=== PATIENT | female | born 1985 | race Caucasian/White ===

== ENCOUNTER 2016-10-02 20:34 | Emergency (ER) | payer OTHER ==
[2016-10-02] MEDS ORDERED: ONDANSETRON 4 MG ORAL DISINTEGRATING TAB (S0181) As Ordered ONE (21:01)
--- NOTE | 2016-10-02 21:36 | EDDOCDS ---
Nurse's Notes [facility] Name: Jose Burt Age: 31 yrs Sex: Female : 1985 Arrival Date: 10/02/2016 Time: 20:34 Bed Triage 1 Private MD: Cinda - Complete Info On Cds Diagnosis: Vomiting;Diarrhea, unspecified Presentation: 10/02 20:39 Presenting complaint: Patient states: vomiting and diarrhea today. States she got dizzy ttb approx 1 hr ago and almost passed out. Adult Sepsis Screening: The patient does not have new or worsening altered mentation. Patient's respiratory rate is less than 22. Systolic blood pressure is greater than 100. Patient has a qSOFA score of 0- Negative Sepsis Screen. Suicide/Homicide risk assessment- the patient denies having any suicidal and/or homicidal ideations and does not present with any other emotional, behavioral or mental health complaints. Status: The patient is a dependent. Transition of care: patient was not received from another setting of care. 20:39 Acuity: JUVENTINO Level 3 ttb 20:39 Method Of Arrival: Ambulance ttb Triage Assessment: 20:40 General: Appears in no apparent distress, slender, well nourished, Behavior is ttb appropriate for age, cooperative, pleasant. Pain: Denies pain. HIV screening NA for this visit Offered previously. Neurological: Level of Consciousness is awake, alert, Reports dizziness. Cardiovascular: Chest pain is denied. Respiratory: No deficits noted. Airway is patent Denies cough, shortness of breath. GI: Reports nausea, vomiting. Derm: Skin is pale. Injury Description: No known injury. 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 Patient/guardian denies using alcohol, street drugs, No barriers to communication noted, The patient speaks fluent Haitian, Speaks appropriately for age. - Family history: No immediate family members are acutely ill. - : The pt / caregiver states he / she is not on anticoagulants. Home medication list is obtained from the patient. - Exposure Risk Screening:: None identified. Screenin:34 Screening information is obtained from the patient. Fall risk: No risks identified. nn1 Assistance ADL's: requires no assistance with activities of daily living. Abuse/DV Screen: The patient / caregiver reports he/she is: not in a situation that causes fear, pain or injury. Nutritional screening: No deficits noted. Advance Directives: Currently, there is no health care proxy. home support is adequate. Assessment: 21:03 General: Appears uncomfortable, Behavior is appropriate for age, cooperative. Pain: nn1 Location: abdomen Pain currently is 1 out of 10 on a pain scale. Aggravated by vomiting. Respiratory: No deficits noted. GI: Abdomen is non- distended Bowel sounds present X 4 quads. Abd is soft and non tender X 4 quads. Reports diarrhea, nausea, vomiting. Derm: Skin is pink, warm & dry. 21:12 General: Patient given chapis bimal to assess fluid tolerance. . nn1 21:33 General: Appears in no apparent distress, comfortable, Behavior is appropriate for age, nn1 cooperative, No vomiting at this time. . Respiratory: No deficits noted. Derm: Skin is pink, warm & dry. Vital Signs: 20:36 BP 104 / 73; Pulse 103; Resp 16; Temp 96.9(O); Pulse Ox 93% on R/A; Weight 50.8 kg; sew Height 5 ft. 2 in. (157.48 cm); Pain 0/10; 20:59 Pulse 89; Pulse Ox 98% ; jo3 20:36 Body Mass Index 20.48 (50.80 kg, 157.48 cm) sew Vitals: 20:36 Log In Time: October 02, 2016 at 20:32. sew ED Course: 20:35 Patient visited by Leeanna Ramírez. sew 20:35 Patient moved to Waiting sew 20:36 Other - Complete Info On Cds is Private Physician. sew 20:37 Patient visited by Leeanna Ramírez. sew 20:37 Patient moved to Pre RCE sew 20:40 Triage Initiated ttb 20:41 Patient visited by Sara Brooke RN. ttb 20:41 Patient moved to Triage 1 ttb 20:42 Luis Sandoval PA is PHCP. mo1 20:42 Sarath Cha DO is Attending Physician. mo1 20:54 Patient visited by Luis Sandoval PA. mo1 21:34 The patient / caregiver is instructed regarding the plan of care and ED course. nn1 21:34 No IV's were initiated during this patient's visit. No procedures done that require nn1 assistance. Administered Medications: 21:03 Drug: Ondansetron ODT 4 mg [ondansetron 4 mg disintegrating tablet (1 tabs)] Route: PO; nn1 Order Results: There are currently no results for this order. Outcome: 21:25 Discharge ordered by Provider. mo1 21:34 Discharge Assessment: Patient awake, alert and oriented x 3. No cognitive and/or nn1 functional deficits noted. Patient verbalized understanding of disposition instructions. patient administered narcotics - no. The following High Risk Discharge criteria are identified: None. Discharged to home ambulatory. Condition: stable Condition: improved. No special radiology studies were completed. Property :Personal belongings accompany Pt. 21:34 Patient left the ED. nn1 Signatures: Genny SanchezRN RN jo3 Leeanna Ramírez Teresa RN RN shib Luis Sandoval PA PA mo1 Sharron PinkRN RN nn1 Corrections: (The following items were deleted from the chart) 21:01 20:59 Resp 89bpm; Pulse Ox 98%; jo3 jo3 MTDD
--- NOTE | 2016-10-02 21:36 | EDDOCDS ---
Physician Documentation [facility] Name: Jose Burt Age: 31 yrs Sex: Female : 1985 Arrival Date: 10/02/2016 Time: 20:34 Bed Triage 1 Private MD: Other - Complete Info On Cds Disposition: 10/02/16 21:25 Discharged to Home/Self Care. Impression: Vomiting, Diarrhea, unspecified. - Condition is Stable. - Discharge Instructions: Food Choices to Help Relieve Diarrhea, Adult, Diarrhea, Nausea and Vomiting. - Prescriptions for ZOFRAN ODT 4 mg Oral - dissolve 1 tablet by ORAL route 4 times per day As needed do not chew, do not swallow whole; 20 tablet. - Medication Reconciliation, Local Pharmacy Hours form. - Follow up: Private Physician; When: Call to arrange an appointment; Reason: Recheck today's complaints, Continuance of care. - Problem is new. - Symptoms have improved. Historical: - Allergies: no known allergies; - Home Meds: 1. 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 Patient/guardian denies using alcohol, street drugs, No barriers to communication noted, The patient speaks fluent Spanish, Speaks appropriately for age. - Family history: No immediate family members are acutely ill. - : The pt / caregiver states he / she is not on anticoagulants. Home medication list is obtained from the patient. - Exposure Risk Screening:: None identified. 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 2 in. (157.48 cm); Pain 0/10; 20:59 Pulse 89; Pulse Ox 98% ; jo3 20:36 Body Mass Index 20.48 (50.80 kg, 157.48 cm) sew MDM: 20:58 Ondansetron ODT Oral Disintegrating Tablet 4 mg PO once ordered. mo1 20:58 Fluid Challenge ordered. mo1 Administered Medications: 21:03 Drug: Ondansetron ODT 4 mg [ondansetron 4 mg disintegrating tablet (1 tabs)] Route: PO; nn1 Signatures: Sara Brooke RN RN ttb Luis Sandoval PA PA mo1 Sharron Pink RN RN nn1 MTDD
--- NOTE | 2016-10-04 22:36 | EDDOCDS ---
Physician Documentation [facility] Name: Jose Burt Age: 31 yrs Sex: Female : 1985 Arrival Date: 10/02/2016 Time: 20:34 Bed Triage 1 Private MD: Other - Complete Info On Cds Disposition: 10/02/16 21:25 Discharged to Home/Self Care. Impression: Vomiting, Diarrhea, unspecified. - Condition is Stable. - Discharge Instructions: Food Choices to Help Relieve Diarrhea, Adult, Diarrhea, Nausea and Vomiting. - Prescriptions for ZOFRAN ODT 4 mg Oral - dissolve 1 tablet by ORAL route 4 times per day As needed do not chew, do not swallow whole; 20 tablet. - Medication Reconciliation, Local Pharmacy Hours form. - Follow up: Private Physician; When: Call to arrange an appointment; Reason: Recheck today's complaints, Continuance of care. - Problem is new. - Symptoms have improved. Historical: - Allergies: no known allergies; - Home Meds: 1. 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 Patient/guardian denies using alcohol, street drugs, No barriers to communication noted, The patient speaks fluent Japanese, Speaks appropriately for age. - Family history: No immediate family members are acutely ill. - : The pt / caregiver states he / she is not on anticoagulants. Home medication list is obtained from the patient. - Exposure Risk Screening:: None identified. 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 2 in. (157.48 cm); Pain 0/10; 20:59 Pulse 89; Pulse Ox 98% ; jo3 20:36 Body Mass Index 20.48 (50.80 kg, 157.48 cm) sew MDM: 20:58 Ondansetron ODT Oral Disintegrating Tablet 4 mg PO once ordered. mo1 20:58 Fluid Challenge ordered. mo1 21:43 [facility] Payment Agreement was scanned into [employer] and attached to record. gjb 21:43 Financial registration complete. gjb 10/03 11:19 T-Sheet-- Draft Copy was scanned into [employer] and attached to record. gb 10/04 18:12 PCR was scanned into [employer] and attached to record. kf3 Administered Medications: 10/02 21:03 Drug: Ondansetron ODT 4 mg [ondansetron 4 mg disintegrating tablet (1 tabs)] Route: PO; nn1 Signatures: Denise Joshi, Reg Reg gb Ashish Martinez, Reg Reg kf3 Sara Brooke, RN RN ttb Luis Sandoval PA PA mo1 Nunez, NikkoleRN RN nn1 Radha Edwards The chart was reviewed and I authenticate all verbal orders and agree with the evaluation and treatment provided.Attachments: 21:43 [facility] Payment Agreement [facility] 10/03 11:19 T-Sheet-- Draft Copy gb Chart Complete MTDD
--- NOTE | 2016-10-04 22:36 | EDDOCDS ---
Nurse's Notes [facility] Name: Jose Burt Age: 31 yrs Sex: Female : 1985 Arrival Date: 10/02/2016 Time: 20:34 Bed Triage 1 Private MD: Cinda - Complete Info On Cds Diagnosis: Vomiting;Diarrhea, unspecified Presentation: 10/02 20:39 Presenting complaint: Patient states: vomiting and diarrhea today. States she got dizzy ttb approx 1 hr ago and almost passed out. Adult Sepsis Screening: The patient does not have new or worsening altered mentation. Patient's respiratory rate is less than 22. Systolic blood pressure is greater than 100. Patient has a qSOFA score of 0- Negative Sepsis Screen. Suicide/Homicide risk assessment- the patient denies having any suicidal and/or homicidal ideations and does not present with any other emotional, behavioral or mental health complaints. Status: The patient is a dependent. Transition of care: patient was not received from another setting of care. 20:39 Acuity: JUVENTINO Level 3 ttb 20:39 Method Of Arrival: Ambulance ttb Triage Assessment: 20:40 General: Appears in no apparent distress, slender, well nourished, Behavior is ttb appropriate for age, cooperative, pleasant. Pain: Denies pain. HIV screening NA for this visit Offered previously. Neurological: Level of Consciousness is awake, alert, Reports dizziness. Cardiovascular: Chest pain is denied. Respiratory: No deficits noted. Airway is patent Denies cough, shortness of breath. GI: Reports nausea, vomiting. Derm: Skin is pale. Injury Description: No known injury. 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 Patient/guardian denies using alcohol, street drugs, No barriers to communication noted, The patient speaks fluent Tanzanian, Speaks appropriately for age. - Family history: No immediate family members are acutely ill. - : The pt / caregiver states he / she is not on anticoagulants. Home medication list is obtained from the patient. - Exposure Risk Screening:: None identified. Screenin:34 Screening information is obtained from the patient. Fall risk: No risks identified. nn1 Assistance ADL's: requires no assistance with activities of daily living. Abuse/DV Screen: The patient / caregiver reports he/she is: not in a situation that causes fear, pain or injury. Nutritional screening: No deficits noted. Advance Directives: Currently, there is no health care proxy. home support is adequate. Assessment: 21:03 General: Appears uncomfortable, Behavior is appropriate for age, cooperative. Pain: nn1 Location: abdomen Pain currently is 1 out of 10 on a pain scale. Aggravated by vomiting. Respiratory: No deficits noted. GI: Abdomen is non- distended Bowel sounds present X 4 quads. Abd is soft and non tender X 4 quads. Reports diarrhea, nausea, vomiting. Derm: Skin is pink, warm & dry. 21:12 General: Patient given chapis bimal to assess fluid tolerance. . nn1 21:33 General: Appears in no apparent distress, comfortable, Behavior is appropriate for age, nn1 cooperative, No vomiting at this time. . Respiratory: No deficits noted. Derm: Skin is pink, warm & dry. Vital Signs: 20:36 BP 104 / 73; Pulse 103; Resp 16; Temp 96.9(O); Pulse Ox 93% on R/A; Weight 50.8 kg; sew Height 5 ft. 2 in. (157.48 cm); Pain 0/10; 20:59 Pulse 89; Pulse Ox 98% ; jo3 20:36 Body Mass Index 20.48 (50.80 kg, 157.48 cm) sew Vitals: 20:36 Log In Time: October 02, 2016 at 20:32. sew ED Course: 20:35 Patient visited by Leeanna Ramírez. sew 20:35 Patient moved to Waiting sew 20:36 Other - Complete Info On Cds is Private Physician. sew 20:37 Patient visited by Leeanna Ramírez. sew 20:37 Patient moved to Pre RCE sew 20:40 Triage Initiated ttb 20:41 Patient visited by Sara Brooke RN. ttb 20:41 Patient moved to Triage 1 ttb 20:42 Luis Sandoval PA is PHCP. mo1 20:42 Sarath Cha DO is Attending Physician. mo1 20:54 Patient visited by Luis Sandoval PA. mo1 21:34 The patient / caregiver is instructed regarding the plan of care and ED course. nn1 21:34 No IV's were initiated during this patient's visit. No procedures done that require nn1 assistance. 21:40 Patient name changed from Nadin\S\\S\Carmel\S\ to Nadin\S\ \S\Carmel. EDMS 21:43 [facility] Payment Agreement was scanned into [employer] and attached to record. [email or web address] 10/03 11:19 T-Sheet-- Draft Copy was scanned into [employer] and attached to record. sabrina 10/04 18:12 PCR was scanned into [employer] and attached to record. kf3 Administered Medications: 10/02 21:03 Drug: Ondansetron ODT 4 mg [ondansetron 4 mg disintegrating tablet (1 tabs)] Route: PO; nn1 Order Results: There are currently no results for this order. Outcome: 21:25 Discharge ordered by Provider. mo1 21:34 Discharge Assessment: Patient awake, alert and oriented x 3. No cognitive and/or nn1 functional deficits noted. Patient verbalized understanding of disposition instructions. patient administered narcotics - no. The following High Risk Discharge criteria are identified: None. Discharged to home ambulatory. Condition: stable Condition: improved. No special radiology studies were completed. Property :Personal belongings accompany Pt. 21:34 Patient left the ED. nn1 Signatures: Dispatcher [employer] EDMI Denise Joshi, Reg Reg gb Genny SanchezRN RN jo3 Ashish Martinez, Reg Reg kf3 Leeanna Ramírez Teresa RN RN ttb Luis Sandoval PA PA mo1 Sharron PinkRN RN nn1 Radha Edwards Corrections: (The following items were deleted from the chart) 21:01 20:59 Resp 89bpm; Pulse Ox 98%; jo3 jo3 Chart Complete MTDD
--- NOTE | 2016-10-04 22:36 | EDDOCDS ---
Physician Documentation [facility] Name: Jose Burt Age: 31 yrs Sex: Female : 1985 Arrival Date: 10/02/2016 Time: 20:34 Bed Triage 1 Private MD: Other - Complete Info On Cds Disposition: 10/02/16 21:25 Discharged to Home/Self Care. Impression: Vomiting, Diarrhea, unspecified. - Condition is Stable. - Discharge Instructions: Food Choices to Help Relieve Diarrhea, Adult, Diarrhea, Nausea and Vomiting. - Prescriptions for ZOFRAN ODT 4 mg Oral - dissolve 1 tablet by ORAL route 4 times per day As needed do not chew, do not swallow whole; 20 tablet. - Medication Reconciliation, Local Pharmacy Hours form. - Follow up: Private Physician; When: Call to arrange an appointment; Reason: Recheck today's complaints, Continuance of care. - Problem is new. - Symptoms have improved. Historical: - Allergies: no known allergies; - Home Meds: 1. 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 Patient/guardian denies using alcohol, street drugs, No barriers to communication noted, The patient speaks fluent Maori, Speaks appropriately for age. - Family history: No immediate family members are acutely ill. - : The pt / caregiver states he / she is not on anticoagulants. Home medication list is obtained from the patient. - Exposure Risk Screening:: None identified. 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 2 in. (157.48 cm); Pain 0/10; 20:59 Pulse 89; Pulse Ox 98% ; jo3 20:36 Body Mass Index 20.48 (50.80 kg, 157.48 cm) sew MDM: 20:58 Ondansetron ODT Oral Disintegrating Tablet 4 mg PO once ordered. mo1 20:58 Fluid Challenge ordered. mo1 21:43 [facility] Payment Agreement was scanned into [employer] and attached to record. gjb 21:43 Financial registration complete. gjb 10/03 11:19 T-Sheet-- Draft Copy was scanned into [employer] and attached to record. gb 10/04 18:12 PCR was scanned into [employer] and attached to record. kf3 Administered Medications: 10/02 21:03 Drug: Ondansetron ODT 4 mg [ondansetron 4 mg disintegrating tablet (1 tabs)] Route: PO; nn1 Signatures: Denise Joshi, Reg Reg gb Ashish Martinez, Reg Reg kf3 Sara Brooke, RN RN ttb Luis Sandoval PA PA mo1 Nunez, NikkoleRN RN nn1 Radha Edwards The chart was reviewed and I authenticate all verbal orders and agree with the evaluation and treatment provided.Attachments: 21:43 [facility] Payment Agreement [facility] 10/03 11:19 T-Sheet-- Draft Copy gb Chart Complete MTDD
== END 2016-10-02 21:34 | disposition home or self-care (01) ==
LOC: M ED 20:34
DX: R11.2 Nausea with vomiting, unspecified (principal); R19.7 Diarrhea, unspecified